=== PATIENT | male | born 1970 | race Caucasian/White ===

== ENCOUNTER 2017-03-21 15:57 | Emergency (ER) | payer OTHER ==
[~2017-03-21] VITALS: Ht 182.9 cm; Wt 113.0 kg
[~2017-03-21 15:57] MED LIST: AMBIEN CR6.25 MG PO; AMBIEN10 MG PO; ATUSS DS OR; CEPHALEXIN500 MG PO; COLCHICINE0.6 MG PO; COMBIVENT IN; FIORICET PO; HYZAAR1 TA1 PO; KEFLEX500 M1 PO; NAPROSYN500 MG OR; NAPROSYN500 MG PO; NO; NO HOME MEDS; TRAMADOL HYDROC50 MG PO; ULTRAM50 M1 PO; ULTRAM50 MG OR; ZPAK OR
[2017-03-21] MEDS ORDERED: LORTAB 10-325 M1 TAB PO (17:42)
[2017-03-21 17:45] VITALS: BP 139/74
== END 2017-03-21 17:45 | disposition home or self-care (01) | DRG 552 ==
LOC: ED 15:57
DX: S16.1XXA Strain of muscle, fascia and tendon at neck level, initial encounter (principal); I10 Essential (primary) hypertension; F41.9 Anxiety disorder, unspecified; X58.XXXA Exposure to other specified factors, initial encounter

== ENCOUNTER 2017-03-23 09:38 | Emergency (ER) | payer OTHER ==
[~2017-03-23 09:38] MED LIST changes: +LORTAB 10-325 M1 TAB PO
== END 2017-03-23 09:41 | disposition left against medical advice (07) | DRG 951 ==
LOC: ED 09:38 → LWOBS 09:41 → ED 09:41
DX: Z91.19 Patient's noncompliance with other medical treatment and regimen (principal)

== ENCOUNTER 2017-05-02 18:21 | Emergency (ER) | payer SELFPAY ==
[~2017-05-02] VITALS: Ht 182.9 cm; Wt 125.0 kg
[2017-05-02] MEDS ORDERED: PERCOCET 5/325M1 TAB PO (19:22)
[2017-05-02 19:30] VITALS: BP 131/89
== END 2017-05-02 19:30 | disposition home or self-care (01) | DRG 558 ==
LOC: ED 18:21
DX: M77.9 Enthesopathy, unspecified (principal); I10 Essential (primary) hypertension; F41.9 Anxiety disorder, unspecified